=== PATIENT | female | born 1940 | race Caucasian/White ===

== ENCOUNTER 2018-07-05 13:26 | Emergency (ER) | payer OTHER, BC ==
[~2018-07-05] VITALS: Ht 160 cm; Wt 58.9 kg
[2018-07-05 14:10] LABS: HEMATOCRIT 33.4 % (36.0-46.0); HEMOGLOBIN 10.5 G/DL (11.9-15.5); MCH 28.8 PG (29.0-34.0); MCHC 31.4 G/DL (30.0-36.0); MCV 91.8 FL (83-99); PLATELET COUNT 442 K/uL (156-360); RBC DIS.WIDTH-CV 17.7 % (11.8-14.6); RED BLOOD COUNT 3.64 M/uL (3.80-5.20); WHITE BLOOD COUNT 14.3 K/uL (4.1-10.2)
[2018-07-05 14:18] LABS: CHLORIDE 106 mEq/L (99-109); SODIUM 139 mEq/L (136-147)
[2018-07-05 14:20] LABS: GLUCOSE 204 mg/dL (70-99)
[2018-07-05 14:24] LABS: CREATININE 0.9 mg/dL (0.6-1.3); GFR ESTIMATE (CALCULATED) > 59 mL/min/
[2018-07-05 14:25] LABS: UREA NITROGEN (BUN) 24 mg/dL (9-23)
[2018-07-05 16:41] LABS: C DIFF TOXIN NEGATIVE (NEGATIVE)
[2018-07-05 17:35] LABS: APPEARANCE CLEAR ((CLEAR)); BILIRUBIN NEGATIVE; BLOOD NEGATIVE; COLOR YELLOW ((YELLOW)); GLUCOSE (STRIP) NEGATIVE; KETONES NEGATIVE; LEUKOCYTES NEGATIVE; NITRITE POSITIVE; PROTEIN (STRIP) NEGATIVE; SPECIFIC GRAVITY 1.023 (1.000-1.030); UROBILINOGEN 0.2 MG/DL (0.2-1.0)
[2018-07-05 17:41] LABS: BACTERIA RARE /HPF; EPITHELIAL CELLS NONE SEEN /HPF; MUCUS TRACE /LPF; RED BLOOD CELLS 0-5 /HPF (0-5); WHITE BLOOD CELLS 0-5 /HPF (0-5)
[2018-07-05] MEDS ORDERED: IMODIUM A-D2 M2 PO (17:55)
[2018-07-05 18:14] VITALS: BP 155/74
== END 2018-07-05 18:18 | disposition home or self-care (01) ==
LOC: EME 13:26
PROVIDERS: Nurse Practitioner Family
DX: R19.7 Diarrhea, unspecified (principal); B34.9 Viral infection, unspecified; R06.02 Shortness of breath; R53.1 Weakness; Z90.49 Acquired absence of other specified parts of digestive tract; Z93.3 Colostomy status
CPT/HCPCS: 71046; 80048; 81003; 85027; 87177; 87493; 99281; 99285; J7030